=== PATIENT | female | born 1985 | race Caucasian/White ===

== ENCOUNTER 2017-03-24 19:28 | Emergency (ER) | payer OTHER ==
[2017-03-24 21:37] VITALS: BP 145/93
== END 2017-03-24 21:37 | disposition home or self-care (01) ==
LOC: ED 19:28
DX: B35.4 Tinea corporis (principal); T14.8 Other injury of unspecified body region; W57.XXXA Bitten or stung by nonvenomous insect and other nonvenomous arthropods, initial encounter; Y93.89 Activity, other specified; Y99.8 Other external cause status; Y92.89 Other specified places as the place of occurrence of the external cause

== ENCOUNTER 2017-11-18 14:55 | Emergency (ER) | payer OTHER ==
[~2017-11-18] VITALS: Ht 170.2 cm; Wt 87.1 kg
[2017-11-18 15:08] VITALS: Ht 170.2 cm; Wt 87.1 kg
[2017-11-18 19:15] VITALS: BP 145/105
== END 2017-11-18 19:13 | disposition home or self-care (01) ==
LOC: ED 14:55
DX: J06.9 Acute upper respiratory infection, unspecified (principal); J30.9 Allergic rhinitis, unspecified; I10 Essential (primary) hypertension

== ENCOUNTER 2018-07-24 16:33 | Emergency (ER) | payer OTHER ==
[~2018-07-24] VITALS: Ht 170.2 cm; Wt 88.9 kg
[2018-07-24 17:01] VITALS: Ht 170.2 cm; Wt 88.9 kg
[2018-07-24 19:50] LABS: BASOPHIL % 0.6 % (0-2); PLATELET COUNT 322 x10^3mcL (130-400); RED CELL DISTRIBUTION WIDTH 13.5 % (11.5-14.5)
[2018-07-24 20:19] VITALS: BP 140/96
== END 2018-07-24 20:46 | disposition home or self-care (01) ==
LOC: ED 16:33
PROVIDERS: Emergency Medicine
DX: O20.9 Hemorrhage in early pregnancy, unspecified (principal); I10 Essential (primary) hypertension; Z3A.01 Less than 8 weeks gestation of pregnancy
CPT/HCPCS: 36415

== ENCOUNTER 2018-11-03 21:04 | Emergency (ER) | payer OTHER ==
[~2018-11-03] VITALS: Ht 167.6 cm; Wt 944.8 kg
[2018-11-03 21:06] VITALS: Ht 167.6 cm; Wt 944.8 kg
[2018-11-03 22:44] LABS: BASOPHIL % 0.3 % (0-2); PLATELET COUNT 261 x10^3mcL (130-400); RED CELL DISTRIBUTION WIDTH 13.3 % (11.5-14.5)
[2018-11-03 23:41] VITALS: BP 132/76
== END 2018-11-03 23:41 | disposition home or self-care (01) ==
LOC: ED 21:04
PROVIDERS: Emergency Medicine
DX: O26.892 Other specified pregnancy related conditions, second trimester (principal); D25.9 Leiomyoma of uterus, unspecified; I10 Essential (primary) hypertension; Z3A.18 18 weeks gestation of pregnancy
CPT/HCPCS: 36415